=== PATIENT | male | born 2005 | race Two or more races ===

== ENCOUNTER 2025-02-03 10:21 | Emergency (ER) | payer MEDICAID, SELFPAY ==
[2025-02-03 10:28] VITALS: BP 152/88; PULSE 71; RESP 18; TEMP 36.7; O2SAT 98; BMI 27.6
--- NOTE | 2025-02-03 10:29 | XR_ITS ---
EXAMINATION: Testicular sonography complete TECHNIQUE: Grayscale sonographic images testes, assessment arterial inflow venous outflow with Doppler spectral analysis and color flow analysis Date and time: February 03, 2025, 11:22 a.m. INDICATIONS: Left testicular pain and swelling beginning 2 days ago. FINDINGS: Right testis 4.9 cm epididymis 17 mm Arterial flow the testicle. No testicular mass Left testis 5.1 cm epididymis 2.3 cm Arterial flow to the testicle. No testicular mass Mild bilateral hydroceles IMPRESSION: No testicular torsion or testicular mass
--- NOTE | 2025-02-03 10:56 | PD.EDRME ---
Rapid Medical Screening Exam RME Arrival date/time: 02/03/25 10:21 19-year-old male with no known medical history presents to the emergency room with a chief complaint of left testicular pain and swelling x 3 days I have greeted and performed a focused initial assessment of this patient. A comprehensive ED assessment and evaluation of the patient, analysis of all test results, and completion of the medical decision making process will be conducted by additional ED providers. Chief Complaint: General Adult/Misc Complain Vital signs: Vital Signs Temperature 98.1 F 02/03/25 10:28 Pulse Rate 71 02/03/25 10:28 Respiratory Rate 18 02/03/25 10:28 Blood Pressure 152/88 H 02/03/25 10:28 Pulse Oximetry (%) 98 02/03/25 10:28 Oxygen Delivery Method Room Air 02/03/25 10:28 Vital signs reviewed by provider: Yes
[2025-02-03 11:19] LABS: Bilirubin,Urine Negative (Negative); Blood,Urine Negative (Negative); Clarity,Urine Clear (Clear/Hazy); Collection Type, Urine Clean Catch; Color,Urine Yellow (Lt Yel-Yel); Culture Indicated,Urine Not Indicated; Glucose, Urine Negative (Negative); Hyaline Casts,Urine < 1 /hpf (0-1); Ketones,Urine Negative (Negative); Leukocyte Esterase,Urine Negative (Negative); Nitrite,Urine Negative (Negative); PH,Urine 6.0 (5.0-7.0); Protein,Urine Trace (Neg - Trace); RBC,Urine 2 /hpf (0-3); Specific Gravity,Urine 1.030 (1.001-1.035); Squamous Epithelial Cell,Urine 0 /hpf (0-5); Urobilinogen,Urine Negative mg/dL (0.0-1.0); WBC,Urine 4 /hpf (0-5)
[2025-02-03 11:33] LABS: Basophils # (Auto) 0.0 Thou/mm3 (0.0-0.2); Basophils % (Auto) 0 % (0-2.5); Eosinophils # (Auto) 0.1 Thou/mm3 (0.0-0.5); Eosinophils % (Auto) 1 % (0-10); Hematocrit 48.9 % (41.0-53.0); Hemoglobin 16.6 g/dL (13.5-16.0); Immature Granulocytes Auto 0.10 Thou/mm3 (0.00-0.00); Lymphocytes # (Auto) 1.9 Thou/mm3 (1.0-4.8); Lymphocytes % (Auto) 13 % (10-50); Mean Corpuscular HGB Conc 33.9 g/dl (31.0-37.0); Mean Corpuscular Hemoglobin 28.5 pg (25.0-35.0); Mean Corpuscular Volume 84 fL (80-100); Monocytes # (Auto) 1.1 Thou/mm3 (0.0-0.8); Monocytes % (Auto) 8 % (0-12); Neutrophils # (Auto) 11.1 Thou/mm3 (1.8-7.7); Neutrophils % (Auto) 78 % (37-80); Nucleated Red Blood Cell # 0.00 Thou/mm3 (0.00-0.00); Nucleated Red Blood Cell % 0 /100 WBC (0); Platelet Count 420 Thou/mm3 (140-440); RDW Standard Deviation 38.5 fL (35.1-43.9); Red Blood Count 5.83 Miln/mm3 (4.50-5.90); White Blood Count 14.3 Thou/mm3 (3.8-10.6)
[2025-02-03 11:47] LABS: Alanine Aminotransferase 30 U/L (10-49); Albumin, Serum 5.4 gm/dL (3.5-5.0); Albumin/Globulin Ratio 1.8 (1.2-2.2); Alkaline Phosphatase 98 U/L (46-116); Anion Gap 9 (7-16); Aspartate Amino Transferase 22 U/L (0-34); BUN/Creatinine Ratio 12 Ratio (12-20); Bilirubin,Total 0.6 mg/dL (0.3-1.2); Blood Urea Nitrogen 13 mg/dL (9-23); Calcium 10.2 mg/dL (8.3-10.6); Calcium (Corrected) 10.2 mg/dL (8.5-10.1); Carbon Dioxide 27.8 mMol/L (20.0-31.0); Chloride 102 mMol/L (98-107); Creatinine (Component) 1.1 mg/dL (0.6-1.3); Estimated Creatinine Clearance 113.1 mL/min (>60); Globulin 3.0 gm/dL (2.3-3.5); Glucose 97 mg/dL (74-106); Osmolality,Calculated 277 (275-295); Potassium 4.5 mMol/L (3.4-5.1); Sodium 139 mMol/L (136-145); Total Protein 8.4 gm/dL (5.7-8.2); eGFR > 60 See Note
--- NOTE | 2025-02-03 11:54 | EDNOTE_ITS ---
<Statement entered by Meghna Garsia MD - 02/03/25 16:00> As co-signing physician, I was present and available for consult prn. I concur with the plan and care as documented by the midlevel provider. ED General RME/HPI General Chief complaint: General Adult/Misc Complain Stated complaint: PAIN/SWELLING L) TESTICLE Time Seen by Provider: 02/03/25 11:50 Arrival date/time: 02/03/25 10:21 CC: Left testicular pain RME / HPI RME / HPI narrative: 02/03/25 10:21 19-year-old male with no known medical history presents to the emergency room with a chief complaint of left testicular pain and swelling x 3 days I have greeted and performed a focused initial assessment of this patient. A comprehensive ED assessment and evaluation of the patient, analysis of all test results, and completion of the medical decision making process will be conducted by additional ED providers. Related Data Home Medications ?Medication ?Instructions ?Recorded ?Confirmed No Known Home Medications 11/15/2210/28 Allergies Allergy/AdvReac Type Severity Reaction Status Date / Time No Known Allergies Allergy Verified 02/03/25 10:24 Review of Systems Review of Systems Narrative Review of Systems: GEN: No fever, no chills, no weight loss EYES: No discharge, no visual changes, no pain HEENT: No ear pain, no congestion, no sore throat PULM: No shortness of breath, no cough, no congestion CV: No chest pain, no dyspnea on exertion, no palpitations GI: No nausea, no vomiting, no diarrhea, no pain, no constipation : No frequency, no urgency, no dysuria MUSC/SKEL: No joint pain, no back pain SKIN: No rash PSYCH: No hallucinations, no depression HEME/LYMPH: No easy bleeding or bruising tendencies NEURO: No weakness, no headache Past Medical History Past Medical History NEUROLOGIC: Negative Neurological Disorders or Seizures CARDIAC: Negative Cardiac Disorders or Congestive Heart Failure RESPIRATORY: Negative Chronic Obstructive Pulmonary Disease (COPD) GASTROINTESTINAL: Negative Gastrointestinal Disorders or Hepatitis GENITOURINARY: Negative Genitourinary Disorders or Renal Disease MUSCULOSKELETAL: Negative Musculoskeletal Disorders ENDOCRINE: Negative Endocrine Disorders, Diabetes Mellitus Type 1 or Diabetes Mellitus Type 2 HEMATOLOGIC: Negative Blood Disorders OTHER HISTORY: Negative Autoimmune Disease, Blood Transfusions, Anesthesia Reactions, MRSA or Cancer Family History FAMILY HISTORY: Negative Family Psychiatric Problems, Family Respiratory Disorders, Family Cardiac Disorders, Family Gastrointestinal Problems, Family Cancer, Family Surgery or Family Anesthesia Reaction Social History SMOKING STATUS: Never smoker ED Exam Narrative Physical exam: [General: Obese not in cot no acute distress Head normocephalic HEENT: Within acceptable limits Neck is supple nontender Chest equal chest rise nontender to palpation Respiratory: Clear to auscultation no wheezes crackles or rubs CV: Rate rhythm is regular no murmurs rubs or clicks Abdomen is distended secondary to body habitus soft nontender no masses positive bowel sounds all 4 quadrants Back: No CVA tenderness no spinous process tenderness from cervical spine thoracic and lumbar spine Skin: Intact no petechiae rash induration ulceration or crepitus Extremities: Moving all extremity against resistance cap refill less than 2 seconds neurosensory intact Neuro: Awake alert oriented x3 Glascow coma 15 no focal deficits] Course Quality Measures none Orders Category Date Time Status US testicular Stat Exams 02/03/25 10:29 Completed CBC Stat Lab 02/03/25 11:10 Completed CMP [Comprehensive Metabolic Panel] Stat Lab 02/03/25 11:10 Completed UA, C/S IF [Urinalysis, C/S if Indicated] Stat Lab 02/03/25 11:05 Completed Vital Signs Vital signs: Vital Signs Temperature 98.1 F 02/03/25 10:28 Pulse Rate 71 02/03/25 10:28 Respiratory Rate 18 02/03/25 10:28 Blood Pressure 152/88 H 02/03/25 10:28 Pulse Oximetry (%) 98 02/03/25 10:28 Oxygen Delivery Method Room Air 02/03/25 10:28 Discharge Plan Plan Patient Disposition: HOME (Self Care) Patient condition on transfer: Stable Prescriptions/Referrals Prescriptions/Med Rec: No Action No Known Home Medications Referrals: Germain Ribera MD [Primary Care Provider, Family Practice] - In 1 week Problem List Clinical Impression: Hydrocele Patient/Caregiver Discharge Instructions Other Activity Instructions:: Place a washcloth underneath your scrotum while sleeping at nighttime. Continue to take ibuprofen as needed for pain as there is worsening of symptoms return to the emergency room or follow-up with your primary care doctor. Education Materials: ED Hydrocele, Type Not Specified Print Language: Mohawk Stand Alone Forms: Jayne Award Info., Work/School Release, Patient Portal Info Letter PA/[employer] Supervising Physician PRADIP Supervising Physician: Geoffrey Marie ENP MDM Clinical Information Provided by: patient Medical Records reviewed [facility] Meds/Rx considered, not ordered None Labs/Rad/Tests considered, not ordered None Chronic Illness/Social Conditions which may negatively complicate care or outcome(s)-explain: None or not applicable EKG EKG not done Labs Labs: interpreted by me Lab(s) Interpretation(s): CBC shows a 14,000 white count no anemia or thrombocytopenia CMP shows no significant electrolyte imbalances renal impairment transaminitis or T. bili elevation Urine is negative for any acute finding including blood leukocyte esterase or bacteria. Imaging Imaging interpretation: interpreted by me Imaging Interpretation(s): Ultrasound shows bilateral hydrocele Medication Administration(s) none Diagnosis Differential Diagnosis ED Complaint MDM: Epididymitis hydrocele orchitis
[2025-02-03 12:15] VITALS: BP 169/74; PULSE 79; RESP 18; TEMP 37; O2SAT 98
[2025-02-03] MEDS: IBUPROFEN TAB 400 MG TABLET 800 MG PO (12:22)
== END 2025-02-03 12:36 | disposition home or self-care (01) ==
PROVIDERS: Nurse Practitioner Family; Emergency Provider Emergency Medicine; PCP Family Medicine
DX: N43.3 Hydrocele, unspecified (principal)
CPT/HCPCS: 36415; 76870; 80053; 81001; 85025; 99283; A9270